=== PATIENT | female | born 2000 | race Caucasian/White ===

== ENCOUNTER 2023-12-08 16:22 | Inpatient (IN) | payer OTHER, MEDICAID ==
[~2023-12-08] VITALS: Ht 154.9 cm; Wt 140.8 kg
[2023-12-08] MEDS ORDERED: HOME MED LIST COMPLETE! XX SCH (17:55)
[2023-12-08 18:26] VITALS: BP 119/62
[2023-12-08 18:33] LABS: HEMATOCRIT 31.2 % (36.0-47.0); MEAN CORPUSCULAR HEMOGLOBIN 25.7 pg (27.0-33.0); MEAN CORPUSCULAR HGB CONC 32.1 g/dl (32.0-36.5); MEAN CORPUSCULAR VOLUME 80.2 fl (80.0-96.0); PLATELET COUNT, AUTOMATED 235 10^3/uL (150-450); RED BLOOD COUNT 3.89 10^6/uL (4.00-5.40); WHITE BLOOD COUNT 9.1 10^3/uL (4.0-10.0)
[2023-12-08] MEDS ORDERED: TRANEXAMIC ACID INJection 1,000 MG in NS 100 ML IV PRN (19:45)
[2023-12-08] MEDS ORDERED: LIDOCAINE 1% MDV 20ML VIAL INFIL PRN (19:45)
[2023-12-08] MEDS ORDERED: CARBOPROST TROMETHAMINE 250 MCG/ML AMP IM PRN (19:45)
[2023-12-08] MEDS ORDERED: OXYTOCIN DRIP 30 UNITS in IV 1 EA IV PRN (19:45)
[2023-12-08] MEDS ORDERED: METHYLERGONOVINE MALEATE 0.2MG/ML 1ML VIAL IM PRN (19:45)
[2023-12-08] MEDS: miSOPROStol 50MCG 1/2 TABLET PO ONE (19:54)
[2023-12-08 20:06] VITALS: BP 114/59
[2023-12-08 20:52] LABS: HEPATITIS C VIRUS ABY INDEX < 0.02 INDEX (<0.8)
[2023-12-08 22:58] VITALS: BP 110/53
[2023-12-09] VITALS (63 sets, daily range): BP systolic 104–170; BP diastolic 52–103; O2SAT 100
[2023-12-09] MEDS ORDERED: LR 500 ML IV PRN (00:45)
[2023-12-09] MEDS ORDERED: NALOXONE INJ 0.4MG/1ML VIAL IV PRN (00:45)
[2023-12-09] MEDS ORDERED: EPIDURAL/PCA KEYS XX PRN (00:45)
[2023-12-09] MEDS ORDERED: ePHEDrine SULFATE 25 MG/5 ML(5MG/ML) SYRINGE IVP PRN (00:45)
[2023-12-09] MEDS: LACTATED RINGER'S 1000 ML IV STA (01:42)
[2023-12-09] MEDS: FENTANYL/ROPIVACAINE/NACL BAG 100 ML EPIDURAL SCH (01:44)
[2023-12-09] MEDS: ONDANSETRON 4MG 2ML VIAL IV PRN (01:44)
[2023-12-09] MEDS: OXYTOCIN DRIP 30 UNITS in IV 1 EA IV SCH (01:59)
[2023-12-09] MEDS: LR 1,000 ML IV SCH (02:29)
[2023-12-09 03:16] LABS: Trichomonas vaginalis (AMP) NOT DETECTED (NEGATIVE)
[2023-12-09 03:40] LABS: GC DNA AMPLIFICATION NEGATIVE (NEGATIVE)
[2023-12-09] MEDS: diphenhydrAMINE 50MG/ML VIAL IV PRN (04:52)
[2023-12-09] MEDS ORDERED: IBUPROFEN 600MG TAB PO PRN (17:40)
[2023-12-09] MEDS ORDERED: DOCUSATE SODIUM 100MG CAPSULE PO PRN (17:40)
[2023-12-09] MEDS ORDERED: ANUSOL HC CREAM 30GM TOP PRN (17:40)
[2023-12-09] MEDS ORDERED: ACETAMINOPHEN TAB 650MG DOSE (2X325MG) PO PRN (17:40)
[2023-12-09] MEDS ORDERED: MOM 30ML SUSPENSION UDC PO PRN (17:40)
[2023-12-09] MEDS ORDERED: RHO(D) IMMUNE GLOBULIN/MALTOSE 500MCG(2500IU)/2.2ML VIAL (WINRHO) IM SCH (17:40)
[2023-12-09] MEDS ORDERED: DIBUCAINE 1% OINTMENT 30GM TOP PRN (17:40)
[2023-12-09] MEDS: ACETAMINOPHEN 500 MG TAB PO PRN (18:01)
[2023-12-09] MEDS: IBUPROFEN 800 MG TAB PO PRN (19:56)
[2023-12-10 06:00] VITALS: BP 135/85; O2SAT 98
[2023-12-10] MEDS: PRENATAL VITAMINS CHEWABLE TABLET PO SCH (09:51)
[2023-12-10 18:00] VITALS: BP 111/65; O2SAT 98
[2023-12-11 05:44] VITALS: BP 139/78; O2SAT 98
[2023-12-11] MEDS: MEASLES,MUMPS,RUBELLA VACCINE INJ (MMR-II) SC.IMMUN ONE (09:00)
[2023-12-11] MEDS ORDERED: ACET-683 PO (09:45)
[2023-12-11] MEDS ORDERED: IBUP80TA PO (09:45)
== END 2023-12-11 18:00 | disposition home or self-care (01) | DRG 560 ==
LOC: M LDI 16:22 → UNDOADMIN 16:22 → M LDI 17:22 → M OBS 12-09 20:02
PROVIDERS: ADMIT Obstetrics & Gynecology; ATTEND Advanced Practice Midwife
PROC: 3E0P7GC Introduction of Other Therapeutic Substance into Female Reproductive, Via Natural or Artificial Opening (ICD-10-PCS; 2023-12-08)
PROC: 10E0XZZ Delivery of Products of Conception, External Approach (ICD-10-PCS; principal; 2023-12-09)
DX: O99.214 Obesity complicating childbirth (principal); E66.01 Morbid (severe) obesity due to excess calories; Z3A.39 39 weeks gestation of pregnancy; Z37.0 Single live birth

== ENCOUNTER → 2024-11-21 | Outpatient (REF) | payer OTHER ==
[~2024-11-21] MED LIST: ACET-683 PO; IBUP80TA PO
[2024-11-21 16:37] LABS: Trichomonas vaginalis (AMP) NOT DETECTED (NEGATIVE)
[2024-11-21 17:01] LABS: GC DNA AMPLIFICATION NEGATIVE (NEGATIVE)
== END ==
LOC: M PLALAB 12:10
PROVIDERS: ATTEND Advanced Practice Midwife
DX: Z12.4 Encounter for screening for malignant neoplasm of cervix (principal); Z11.3 Encounter for screening for infections with a predominantly sexual mode of transmission; C44.92 Squamous cell carcinoma of skin, unspecified
CPT/HCPCS: 87661; 87810; 87850; G0123

== ENCOUNTER → 2024-12-13 | Outpatient (REF) | payer OTHER ==
[2024-12-18 14:38] LABS: HPV APTIMA Not Detected (Not Detected)
== END ==
LOC: M PLALAB 11:29
PROVIDERS: ATTEND Advanced Practice Midwife
DX: Z12.4 Encounter for screening for malignant neoplasm of cervix (principal)
CPT/HCPCS: 87624; G0123